=== PATIENT | female | born 1965 | race Caucasian/White ===

== ENCOUNTER → 2023-12-26 07:00 | Outpatient (REF) | payer OTHER, SELFPAY | LOC: HWRCS 07:00 | PROVIDERS: ATTENDING PHYSICIAN Physician Assistant Medical | DX: I25.10 Atherosclerotic heart disease of native coronary artery without angina pectoris (principal) | CPT/HCPCS: 93306 ==

== ENCOUNTER → 2024-01-13 08:25 | Outpatient (REF) | payer OTHER, SELFPAY | LOC: DHCBC/DCA 08:25 | PROVIDERS: ATTENDING PHYSICIAN Physician Assistant Medical | DX: I25.10 Atherosclerotic heart disease of native coronary artery without angina pectoris (principal) | CPT/HCPCS: 78452; 93017; A9500; J2785 ==

== ENCOUNTER → 2024-01-23 13:33 | Outpatient (REF) | payer OTHER, SELFPAY | LOC: HWRAD 13:33 | PROVIDERS: ATTENDING PHYSICIAN Physician Assistant; FAMILY PHYSICIAN Physician Assistant Medical; OTHER PHYSICIAN Orthopaedic Surgery; REFERRING PHYSICIAN Podiatrist Foot & Ankle Surgery | DX: L97.522 Non-pressure chronic ulcer of other part of left foot with fat layer exposed (principal); L03.116 Cellulitis of left lower limb; M25.561 Pain in right knee; M25.572 Pain in left ankle and joints of left foot | CPT/HCPCS: 73560; 73565; 73610; 73630 ==

== ENCOUNTER → 2024-04-16 14:32 | Outpatient (REF) | payer OTHER, SELFPAY | LOC: RAD 14:32 | PROVIDERS: ATTENDING PHYSICIAN Internal Medicine Rheumatology; FAMILY PHYSICIAN Physician Assistant Medical | DX: G89.29 Other chronic pain (principal); M06.4 Inflammatory polyarthropathy; M15.9 Polyosteoarthritis, unspecified; I10 Essential (primary) hypertension; M25.511 Pain in right shoulder | CPT/HCPCS: 73030 ==

== ENCOUNTER → 2024-08-20 12:59 | Outpatient (REF) | payer OTHER, SELFPAY | LOC: WDC 12:59 | PROVIDERS: ATTENDING PHYSICIAN Physician Assistant Medical | DX: Z12.31 Encounter for screening mammogram for malignant neoplasm of breast (principal) | CPT/HCPCS: 77063; 77067 ==

== ENCOUNTER → 2024-08-31 10:11 | Outpatient (REF) | payer OTHER, SELFPAY | LOC: WDC 10:11 | PROVIDERS: ATTENDING PHYSICIAN Physician Assistant Medical | DX: R92.8 Other abnormal and inconclusive findings on diagnostic imaging of breast (principal) | CPT/HCPCS: 77065 ==

== ENCOUNTER → 2024-09-06 07:00 | Outpatient (REF) | payer OTHER, SELFPAY ==
--- NOTE | 2024-09-06 09:33 | OID.BR.INTR ---
[facility] Breast Navigator - Initial
- -
Date of Contact: 09/06/24
Met with patient. Patient given written information on navigator service available at [facility]. Will follow up as needed per protocol.
== END ==
LOC: WDC 07:00
PROVIDERS: ATTENDING PHYSICIAN Physician Assistant Medical
DX: R92.1 Mammographic calcification found on diagnostic imaging of breast (principal)
CPT/HCPCS: 88305; 19081; 76098; A4648